=== PATIENT | female | born 1985 | race Two or more races ===

== ENCOUNTER 2017-07-22 10:25 | Day surgery (SDC) | payer MEDICAID ==
[2017-07-08 12:59] LABS: APPEARANCE,URINE CLEAR; BILIRUBIN, URINE NEGATIVE (NEGATIVE); COLOR,URINE PALE YELLOW; GLUCOSE, URINE (UA) NEGATIVE (NEGATIVE); KETONES,URINE NEGATIVE (NEGATIVE); LEUKOCYTE ESTERASE ,URINE 1+ (NEGATIVE); NITRITE,URINE NEGATIVE (NEGATIVE); PH,URINE 6 (4.5-8.0); PROTEIN,URINE NEGATIVE (NEGATIVE); UROBILINOGEN,URINE NORMAL MG/DL (0.0-1.0)
[2017-07-08 13:00] LABS: BASOPHILS % (AUTO) 1.8 % (0.0-2.0); EOSINOPHILS % (AUTO) 3.8 % (0.0-3.0); HEMATOCRIT 45.9 % (37.0-47.0); HEMOGLOBIN 15.8 G/DL (12.0-16.0); LYMPHOCYTES % (AUTO) 33.2 % (20.0-45.0); MEAN CORPUSCULAR VOLUME 90 FL (80-99); MONOCYTES % (AUTO) 5.7 % (1.0-10.0); NEUTROPHILS % (AUTO) 55.6 % (45.0-75.0); PLATELET COUNT 313 K/UL (150-450); RED BLOOD COUNT 5.11 M/UL (4.20-5.40); RED CELL DISTRIBUTION WIDTH 11.7 % (11.6-14.8)
[2017-07-08 13:11] LABS: INR 0.9 (0.9-1.1)
--- NOTE | 2017-07-19 12:15 | Pre-op HX & Phy Repo 2 SIG ---
DATE OF ADMISSION: 07/22/2017 PREOPERATIVE HISTORY AND PHYSICAL REASON FOR EVALUATION: The patient is scheduled for outpatient surgery on July 22, 2017. HISTORY OF PRESENT ILLNESS: The patient is a 31-year-old female in good health who recently developed a lump in her right breast at the superior portion of her areola. She underwent imaging studies and a core needle biopsy. This revealed a low-grade spindle cell neoplasm but a final diagnosis could not be obtained and determination as to whether it is benign or malignant is still uncertain. The pathologist recommended complete excision of the lesion for further pathologic evaluation and immunohistochemical studies. The differential diagnosis includes spindle-cell myoepithelioma, fibrous histiocytoma, smooth muscle neoplasm, solitary fibrous tumor, metastatic spindle cell carcinoma, and desmoplastic melanoma. The patient has no family history of breast cancer and is having regular menstrual periods. She has had two children. PHYSICAL EXAMINATION: VITAL SIGNS: The patient is 5 feet 3 inches, 130 pounds. HEENT: Within normal limits. LUNGS: Clear. HEART: Regular rhythm. BREASTS: Examination of the left breast is unremarkable. Examination of the right breast reveals a hard nodule in the superior areola, 1 cm x 3 cm with transverse orientation. There is no palpable axillary or supraclavicular lymphadenopathy. ABDOMEN: Soft. PELVIC: Per meat process worker. RECTAL: Per meat process worker. EXTREMITIES: Without edema. NEUROLOGIC: Physiologic. IMPRESSION: Right breast neoplasm. PLAN: Excisional biopsy of right breast mass. I have had a full discussion with the patient regarding the need for surgery, indications, alternatives, options, and risks including bleeding, infection, distortion of the breast and the areola as well as nipple deformity may likely occur. Because of the need to completely excise this lesion, I informed her that plastic surgery reconstruction may be available if needed postoperatively and then additional treatment including potential additional surgery may be required based on final pathologic diagnosis. All questions have been answered. She understands and agrees to proceed under general anesthesia as an outpatient. Tyler Norwood M.D. DR: Dominik JOB#: [id number] CC:
[~2017-07-22] VITALS: Ht 154.9 cm; Wt 56.2 kg
[2017-07-22] VITALS (9 sets, daily range): BP systolic 96–111; BP diastolic 54–76
[~2017-07-22 10:25] MED LIST: CYCLOBENZAPRINE10 MG ORAL
[2017-07-22] MEDS ORDERED: NKM (11:26)
--- NOTE | 2017-07-22 11:45 | Pre-Procedure Note/Attestation ---
Pre-Procedure Note/Attestation Complete Prior to Procedure Planned Procedure: right Procedure Narrative: excision right breast mass Indications for Procedure Pre-Operative Diagnosis: mass right breast Attestation I attest that I discussed the nature of the procedure; its benefits; risks and complications; and alternatives (and the risks and benefits of such alternatives ), prior to the procedure, with the patient (or the patient's legal malt liquors sales representative). I attest that, if there was a reasonable possibility of needing a blood transfusion, the patient (or the patient's legal malt liquors sales representative) was given the [facility] standardized written summary, pursuant to the Vazquez Pitts Blood Safety Act ([place] Health and Safety Code # 1645, as amended). I attest that I re-evaluated the patient just prior to the surgery and that there has been no change in the patient's H&P, except as documented below: none Tyler Norwood MD July 22, 2017 11:45
[2017-07-22] MEDS ORDERED: Lidocaine 1% Plain 30 ml INJ ONE (11:51)
[2017-07-22] MEDS ORDERED: EPINEPHrine 1mg/1ml Amp ONE (11:51)
[2017-07-22] MEDS ORDERED: fentaNYL 100 mcg/2 mL IV ONE (11:51)
[2017-07-22] MEDS ORDERED: Midazolam 2mg/2ml Inj ONE (11:51)
[2017-07-22] MEDS ORDERED: Lidocaine 1% 10mg/ml/Epi 0.005mg/ml 30ml vial INJ ONE (11:52)
[2017-07-22] MEDS ORDERED: Propofol 200mg/20ml IV ONE (11:52)
[2017-07-22] MEDS ORDERED: Bupivacaine 0.5% Inj 30 ml vial INJ ONE (11:52)
[2017-07-22] MEDS ORDERED: LR 1000ml ONE (12:00)
[2017-07-22] MEDS ORDERED: Sterile Water Irrig 1000ml IRRIG ONE (12:00)
[2017-07-22] MEDS ORDERED: NS Irrig 1000ml IRRIG ONE (12:18)
--- NOTE | 2017-07-22 12:20 | Anethesia Preoperative Eval ---
Anesthesia Pre-op PMH/ROS General Date of Evaluation: July 22, 2017 Time of Evaluation: 11:45 Anesthesiologist: Elsa ASA Score: ASA 1 Mallampati Score Class I : Soft palate, uvula, fauces, pillars visible Class II: Soft palate, uvula, fauces visible Class III: Soft palate, base of uvula visible Class IV: Only hard plate visible Mallampati Classification: Class II Surgeon: Cuco Diagnosis: Breast mass Surgical Procedure: Excision of right breast mass Family History: no anesthesia problems Allergies: Coded Allergies: No Known Allergies (Unverified , 07/19/17) Medications: see eMAR Past Medical History Cardiovascular: Denies: HTN, CAD, CA, valve dz, arrhythmia, other Pulmonary: Denies: asthma, COPD, VALARIE, other Gastrointestinal/Genitourinary: Denies: GERD, CRI, ESRD, other Neurologic/Psychiatric: Denies: dementia, CVA, depression/anxiety, TIA, other Endocrine: Denies: DM, hypothyroidism, steroids, other HEENT: Denies: cataract (L), cataract (R), glaucoma, KIPNUK (L), KIPNUK (R), other Hematology/Immune: Denies: anemia, DVT, bleeding disorder, other PMH Narrative: Denies significant PMH PSxH Narrative: No prior surgery Anesthesia Pre-op Phys. Exam Physician Exam Last Vital Signs Date Time Temp Pulse Resp B/P (MAP) Pulse Ox O2 Delivery O2 Flow Rate FiO2 07/22/17 11:17 98.5 74 18 105/75 98 Room Air 98.5 Constitutional: NAD Neurologic: CN 2-12 intact Cardiovascular: RRR, no M/R/G Respiratory: CTA Gastrointestinal: S/NT/ND Airway Exam Mallampati Score: Class II MO: full ROM: full Teeth: intact Anesthesia Pre-op A/P Labs Urine Test Test 07/22/17 10:40 Urine HCG, Qualitative Negative (NEGATIVE) Risk Assessment & Plan Assessment: Healthy female for excision of breast mass Plan: GA, LMA Status Change Before Surgery: No Pre-Antibiotics Drug: Ancef Given Within 1 Hr of Incision: Yes Time Given: 12:00 Vazquez Hunter MD July 22, 2017 12:20
--- NOTE | 2017-07-22 12:21 | Immediate Post-Op Evaluation ---
Immediate Post-Op Evalulation Immediate Post-Op Evalulation Procedure: Excision of right breast mass Date of Evaluation: July 22, 2017 Time of Evaluation: 13:00 IV Fluids: 400 Blood Pressure Systolic: 98 Blood Pressure Diastolic: 55 Pulse Rate: 80 Respiratory Rate: 18 O2 Sat by Pulse Oximetry: 98 Temperature (Fahrenheit): 97.2 Pain Score (1-10): 0 Nausea: No Vomiting: No Complications No complication Patient Status: reacts, patent, none Hydration Status: adequate Drug: Ancef Given Within 1 Hr of Incision: Yes Time Given: 12:00 Vazquez Hunter MD July 22, 2017 12:21
[2017-07-22] MEDS ORDERED: LR 1000ml 1,000 ML IVLG SCH (12:22)
[2017-07-22] MEDS ORDERED: Midazolam 2mg/2ml Inj IVP PRN (12:30)
[2017-07-22] MEDS ORDERED: DiphenhydrAMINE 50mg/ml Inj IVP PRN (12:30)
[2017-07-22] MEDS ORDERED: Meperidine 50mg/ml Inj(FOR RIGORS ONLY) IVP ONE (12:30)
--- NOTE | 2017-07-22 12:55 | Brief Operative Note ---
Immediate Post Operative Note Operative Note Pre-op Diagnosis: mass right breast Procedure: excision of right breast mass Post-op Diagnosis: same Post-op Diagnosis: same as pre-op Findings: consistent w/pre-op dx eulalia - elda Surgeon: elda Anesthesiologist: bill Anesthesia: general Specimen: yes - breast tumor Complications: none Condition: stable Fluids: see anesthesia record Estimated Blood Loss: none Drains: none Implant(s) used?: No Tyler Norwood MD July 22, 2017 12:55
[2017-07-22] MEDS ORDERED: D5 1/2NS 1,000 ML IV SCH (13:00)
[2017-07-22] MEDS ORDERED: Norco 5mg/325mg tab ORAL PRN (13:00)
[2017-07-22] MEDS ORDERED: Tylenol #3 tab (300mg/30mg) ORAL PRN (13:00)
--- NOTE | 2017-07-22 13:01 | 48 Hour Post Anesthesia Eval ---
Post Anesthesia Evaluation Procedure: Excision of right breast mass Date of Evaluation: July 22, 2017 Time of Evaluation: 13:30 Blood Pressure Systolic: 98 0: 66 Pulse Rate: 83 Respiratory Rate: 12 O2 Sat by Pulse Oximetry: 99 Airway: patent Nausea: No Vomiting: No Pain Intensity: 1 Hydration Status: adequate Cardiopulmonary Status: Stable Mental Status/LOC: patient returned to baseline Follow-up Care/Observations: As per surgery Post-Anesthesia Complications: No anesthetic complication Follow-up care needed: N/A Vazquez Hunter MD July 22, 2017 13:01
--- NOTE | 2017-07-22 14:00 | Operative Note - Dictated ---
DATE OF OPERATION: 07/22/2017 SURGEON: Tyler Norwood M.D. ROCKET MOTOR TESTER: None. ANESTHESIOLOGIST: Vazquez Hunter M.D. ANESTHESIA: General. PREOPERATIVE DIAGNOSIS: Right breast neoplasm, spindle cell type, within the superior areola. POSTOPERATIVE DIAGNOSIS: Right breast neoplasm, spindle cell type, within the superior areola. OPERATION PERFORMED: Excisional biopsy of right breast mass. DESCRIPTION OF PROCEDURE: The patient was taken to the operating room and under general anesthesia with sequential compression device stockings in place, she was prepped and draped in the usual fashion. The lesion was transversely oriented approximately 1 x 3 cm and it was fixed to the undersurface of the areolar skin between the 10:30 and 1:30 positions. A wedge shaped excision was outlined and the mass was excised using cautery for hemostasis and including the overlying skin. The specimen was oriented with suture markers and given to the pathologist. The field was irrigated and 0.5% Marcaine plain infiltrated. The incision was closed transversely with interrupted 3-0 Vicryl subcutaneous sutures followed by 4-0 nylon interrupted simple and vertical mattress sutures. Tincture of benzoin and half-inch Steri-Strips were applied followed by dry sterile dressing. Final sponge and needle counts were correct. The patient tolerated the procedure well and left the operating room in good condition. Tyler Norwood M.D. DR: SAMIA JOB#: [id number] CC: YADI
== END 2017-07-22 15:10 | disposition home or self-care (01) ==
LOC: SUR 10:25
DX: C50.011 Malignant neoplasm of nipple and areola, right female breast (principal)
CPT/HCPCS: 19120; 36415; 81003; 81025; 84703; 85025; 85610; 85730; J0690; J2001; J2250; J2405; J2704; J3010; J3490; J7120; Z7512; 94003; 94150